=== PATIENT | male | born 1975 | race Caucasian/White ===

== ENCOUNTER 2017-08-31 07:05 | Emergency (ER) | payer SELFPAY ==
[2017-08-31 07:38] VITALS: BP 127/73
[2017-08-31] MEDS ORDERED: Tetan/Diph/Pertus SYR(Tdap)* 0.5 ML SYR(BOOSTRIX) use SYR IM ONE (07:44)
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
--- NOTE | 2017-08-31 08:39 | UC ---
Lower Extremity/Ankle HPI - HPI Summary HPI Summary: 41 year old male with foot pain . Left foot pain on plantar surface onset 2 days ago s/p pt stepped on nail, swelling started yesterday. Hx of foot fx approximately 2002; otis lodged since childhood. No fever. pain with walking. redness started yesterday had similar episode last year . nail may have been moist or wet it [place] / garage and more than 100 years old he thinks [ End ] - History of Current Complaint Chief Complaint: [facility] Stated Complaint: LEFT FOOT INJURY Time Seen by Provider: 08/31/17 07:43 Pain Intensity: 1 - Risk Factors Gout Risk Factors: Age Over 40 - Allergies/Home Medications Allergies/Adverse Reactions: Allergies Allergy/AdvReac Type Severity Reaction Status Date / Time No Known Allergies Allergy Verified 08/31/17 07:29 PMH/Surg Hx/FS Hx/Imm Hx Previously Healthy: Yes - Surgical History Surgical History: Yes Surgery Procedure, Year, and Place: 2009 hemorrhoid - Family History Known Family History: Positive: None - Social History Occupation: Employed Full-time - [employer] Alcohol Use: None Substance Use Type: Marijuana Substance Use Comment - Amount & Last Used: today Smoking Status (MU): Heavy Every Day Tobacco Smoker Cessation Counseling: Patient Advised to Stop - Immunization History Most Recent Tetanus Shot: UNKNOWN Review of Systems Constitutional: Negative Skin: Negative, Other - redness in left foot Eyes: Negative ENT: Negative Respiratory: Negative Cardiovascular: Negative Gastrointestinal: Negative Genitourinary: Negative Motor: Negative Neurovascular: Negative Musculoskeletal: Negative Neurological: Negative Psychological: Negative All Other Systems Reviewed And Are Negative: Yes Physical Exam Triage Information Reviewed: Yes Appearance: Well-Appearing, No Pain Distress, Well-Nourished Vital Signs: Initial Vital Signs Temp 99 F 08/31/17 07:29 Pulse 83 08/31/17 07:29 Resp 18 08/31/17 07:29 BP 127/73 08/31/17 07:29 Pulse Ox 100 08/31/17 07:29 Vital Signs Reviewed: Yes ENT: Positive: Hearing grossly normal Respiratory Exam: Normal Cardiovascular Exam: Normal Musculoskeletal: Positive: ROM Limited @ - left foot toes with flexion Neurological Exam: Normal Psychological Exam: Normal Skin: Negative: Other - left plantar foot between 2nd/3rd toe with puncture wound but no erythema. (+) erythema dorsal foot between 2/3 toes. outlines. mild swelling of the foot to the ankle. sensation intact. no streaking Lower Extremity Course/Dx - Course Course Of Treatment: With liklihood of the wet nail need to cover for pseudomonas -- need flouroquinioline == discussed at length SE including tendon rupture and he is aware no exposive movements , no ladder climbing or he risks rupture tendon and he is aware and will try to not perform those activity. no other great options for meds at this time. outlined the redness and if redness spreads then he is awre to fo to the ED for further treatment. - Differential Dx/Diagnosis Differential Diagnosis/HQI/PQRI: Infection Provider Diagnoses: left foot nail punture wound. left foot cellulitis Discharge - Discharge Plan Condition: Good Disposition: HOME Prescriptions: Ciprofloxacin HCl 750 mg PO BID #20 tablet Patient Education Materials: Puncture Wound (ED), Cellulitis (ED) Referrals: No Primary Care Phys,NOPCP [Primary Care Provider] - 1 Day (If the redness not improved or worsened go to seek medical care ) Additional Instructions: Please avoid explosive movements like jumping up and down, climbing ladders, sprinting and other explosive movements or you can risk rupturing the Achilles tendon or another tendon due to taking the antibiotic.
[2017-08-31] MEDS ORDERED: Lidocaine 1%* 5 ML VIAL INJ ONE (08:48)
[2017-08-31] MEDS ORDERED: cefTRIAXone VIAL(*) 1,000 MG VIAL IM ONE (08:48)
[2017-08-31] MEDS ORDERED: Lidocaine 1% MPF* 2 ML VIAL ONE (08:54)
== END 2017-08-31 09:31 | disposition home or self-care (01) ==
LOC: UCCORT 07:05
DX: S91.332A Puncture wound without foreign body, left foot, initial encounter (principal); L03.116 Cellulitis of left lower limb; F17.200 Nicotine dependence, unspecified, uncomplicated; W45.0XXA Nail entering through skin, initial encounter; Y92.9 Unspecified place or not applicable
CPT/HCPCS: 90471; 90715; 96372; 99202; G0463; J0696